=== PATIENT | female | born 1955 | race Caucasian/White ===

== ENCOUNTER 2020-04-02 12:20 | Outpatient (CLI) | payer MEDICARE, BC, SELFPAY ==
--- NOTE | 2020-04-02 12:34 | XR_ITS ---
WS: [id number] Right hip, AP and frog-leg views, 04/02/2020 Clinical Data: HIP PAIN RIGHT Comparison: None. Findings: There is narrowing of the right hip joint. No erosion or sclerosis is seen. There are no fractures or dislocations. The adjacent right pelvis shows that the right SI joint and pubic symphysis are normal . The soft tissues are unremarkable. XR/XR hip RT 2-3V wo/w pel* [id number] Impression: Moderate osteoarthritis of the right hip.
== END 2020-04-02 12:21 | disposition home or self-care (01) ==
PROVIDERS: Family Provider Family Medicine; Visit Provider Family Medicine
DX: M16.11 Unilateral primary osteoarthritis, right hip (principal)
CPT/HCPCS: 73502

== ENCOUNTER 2021-02-03 12:10 | Outpatient (CLI) | payer MEDICARE, BC, SELFPAY ==
--- NOTE | 2021-02-03 12:18 | XR_ITS ---
WS: [id number] Exam: XR chest 2V* [id number] Date/Time of Exam: 02/03/2021 12:18 PM Reason For Exam: EDEMA/DYSPNEA Comparison 07/11/2010. The lungs are clear and fully expanded. Normal cardiomediastinal silhouette. No pleural effusions. Pr ominent hiatal hernia. Bony structures are intact. XR/XR chest 2V* [id number] IMPRESSION: 1. Prominent hiatal hernia. The chest is otherwise normal.
== END 2021-02-03 12:11 | disposition home or self-care (01) ==
PROVIDERS: PCP Family Medicine; Visit Provider Family Medicine
DX: R60.9 Edema, unspecified (principal); R06.00 Dyspnea, unspecified; K44.9 Diaphragmatic hernia without obstruction or gangrene
CPT/HCPCS: 71046

== ENCOUNTER 2021-06-29 07:56 | Outpatient (CLI) | payer MEDICARE, BC, SELFPAY ==
--- NOTE | 2021-06-29 08:30 | USCV_ITS ---
Jackeline Johnston Age: 66 Gender: F : 1955 Exam Date: 06/29/2021 08:21 Ordering Phys: Nicolette Garcia MD ([email or web address]) Technologist: Exam Location: [facility] [place] Indication: BP: 130 / 75 HR: 62 Rhythm: Sinus Technical Quality: Adequate MEASUREMENTS (Male / Female) Normal Values 2D ECHO LV Diastolic Diameter PLAX 4.6 cm 4.2 - 5.9 / 3.9 - 5.3 cm LV Systolic Diameter PLAX 2.5 cm IVS Diastolic Thickness 1.0 cm 0.6 - 1.0 / 0.6 - 0.9 cm IVS Systolic Thickness 1.4 cm LVPW Diastolic Thickness 1.2 cm 0.6 - 1.0 / 0.6 - 0.9 cm LVPW Systolic Thickness 1.5 cm LVOT Diameter 2.2 cm LV Ejection Fraction 2D Teich 76.0 % LV Ejection Fraction MOD 2C 69.0 % LV Ejection Fraction 2C AL 68.0 % LA Diameter 3.6 cm M-MODE Aortic Annulus Diameter 2.9 cm LA Ao Ratio MM 1.4 MV E Point Septal Separation 0.5 cm DOPPLER AV Peak Velocity 124.7 cm/s LVOT Peak Velocity 96.0 cm/s AV Area Cont Eq vti 2.2 cm squared AV Area Cont Eq pk 2.8 cm squared MV Area PHT 5.0 cm squared Mitral E to A Ratio 0.9 MV E' Velocity 37.5 cm/s Mitral E to MV E' Ratio 8.3 Mitral E to LV E' Lateral Ratio 8.8 Mitral E to LV E' Septal Ratio 8.0 TR Peak Velocity 234.7 cm/s TR Peak Gradient 22.0 mmHg Right Atrial Pressure 3.0 mmHg Pulmonary Artery Systolic Pressu 25.0 mmHg PV Peak Velocity 87.0 cm/s FINDINGS Left Ventricle Normal left ventricular size. LV systolic function is normal with EF of 55-60%. No regional wall motion abnormalities. Grade 1 diastolic dysfunction Right Ventricle The right ventricle is normal in size and function. Right Atrium The right atrium is normal in size. Left Atrium The left atrium is dilated Mitral Valve Structurally normal mitral valve without significant stenosis or prolapse. There is mild mitral regurgitation. Aortic Valve Grossly normal without significant sclerosis or stenosis. There is no aortic regurgitation. Tricuspid Valve Grossly normal without significant stenosis. Mild tricuspid regurgitation. Pulmonary artery systolic pressure is normal. Pulmonic Valve Not well visualized Pericardium Normal pericardium without effusion. Aorta Normal ascending aorta dimension. CONCLUSIONS Technically limited quality echocardiogram because of poor ultrasonic windows LV systolic function is normal with EF of 55-60% Grade 1 diastolic dysfunction Left atrium is dilated Mild mitral regurgitation Mild tricuspid regurgitation No comparison studies are available Camilo Landa MD (Electronically Signed) Final Date: 29 June 2021 11:38 S
== END 2021-06-29 07:57 | disposition home or self-care (01) ==
LOC: RAD 07:58
PROVIDERS: PCP Family Medicine; Visit Provider Internal Medicine Cardiovascular Disease
DX: I10 Essential (primary) hypertension (principal); R06.02 Shortness of breath; I08.1 Rheumatic disorders of both mitral and tricuspid valves
CPT/HCPCS: 93306

== ENCOUNTER → 2022-10-27 08:27 | Outpatient (BNVA) | payer MEDICARE, BC, SELFPAY | PROVIDERS: PCP Electrodiagnostic Medicine; Visit Provider Dermatology | DX: L90.0 Lichen sclerosus et atrophicus (principal); L30.4 Erythema intertrigo; D23.5 Other benign neoplasm of skin of trunk; L81.4 Other melanin hyperpigmentation; D18.01 Hemangioma of skin and subcutaneous tissue; L57.3 Poikiloderma of Civatte; L82.1 Other seborrheic keratosis; I78.8 Other diseases of capillaries; L57.0 Actinic keratosis | CPT/HCPCS: 17000; 99214 ==

== ENCOUNTER → 2023-05-01 14:58 | Outpatient (BNVA) | payer MEDICARE, BC, SELFPAY | PROVIDERS: PCP Electrodiagnostic Medicine; Visit Provider Dermatology | DX: L90.0 Lichen sclerosus et atrophicus (principal); L57.0 Actinic keratosis; L81.4 Other melanin hyperpigmentation; I78.8 Other diseases of capillaries; L82.0 Inflamed seborrheic keratosis | CPT/HCPCS: 17000; 17110; 99213 ==

== ENCOUNTER 2023-07-04 12:36 | Outpatient (CLI) | payer MEDICARE, BC, SELFPAY ==
--- NOTE | 2023-07-04 12:44 | XR_ITS ---
WS: [id number] SCREENING DEXA SCAN [employer] CLINICAL INFORMATION: POSTMENOPAUSAL COMPARISON: None. FINDINGS: The L1-L4 bone mineral density measures 1.109 g/cm2. This corresponds to a T score score of -0.6 and Z score of 0.2. Left femoral neck bone mineral density measures 0.990 (g/cm2). This corresponds to a T score of -0.1 (no units) and Z score of 0.6 (no units). LEFT forearm bone mineral density measures 0.787. This corresponds to a T score -1.0 of and Z score o f 0.6. IMPRESSION: Osteopenia LEFT forearm. Normal bone mineralization lumbar spine and LEFT femoral neck Patient's FRAX calculated 10 year probability for major osteoporotic fracture is 10.7% and osteoporot ic hip fracture is 1.8%.
--- NOTE | 2023-07-04 13:11 | MM_ITS ---
WS: [id number] VIEWS: MLO and CC views both breasts. 3D digital tomosynthesis is also included in this exam. Comparison made with prior exam of 03/29/2010, 07/14/2011, 12/04/2012, 03/02/2015, 02/05/2017.. Findings: There was no sign of mass, architectural distortion or suspicious calcification in either breast. Sta ble appearing bilateral nodules. There are scattered areas of fibroglandular density. Impression: MM/[place] [id number] BI-RADS: 2-Benign finding. FOLLOW-UP: 1 Year Follow-up This mammogram was also analyzed by the Computer Aided Detection System R2 Imag e Flaring Machine Operator.
== END 2023-07-04 12:37 | disposition home or self-care (01) ==
LOC: RAD 12:38
PROVIDERS: PCP Electrodiagnostic Medicine; Visit Provider Electrodiagnostic Medicine
DX: Z12.31 Encounter for screening mammogram for malignant neoplasm of breast (principal); Z78.0 Asymptomatic menopausal state; R92.323 Mammographic fibroglandular density, bilateral breasts; M85.832 Other specified disorders of bone density and structure, left forearm
CPT/HCPCS: 77063; 77067; 77080

== ENCOUNTER → 2024-01-30 12:56 | Outpatient (BNVA) | payer MEDICARE, BC, SELFPAY | PROVIDERS: PCP Electrodiagnostic Medicine; Visit Provider Nurse Practitioner Family | DX: L90.0 Lichen sclerosus et atrophicus (principal); L30.4 Erythema intertrigo; I78.8 Other diseases of capillaries; L57.3 Poikiloderma of Civatte | CPT/HCPCS: 99213 ==

== ENCOUNTER 2024-11-19 12:29 | Outpatient (CLI) | payer MEDICARE, BC, SELFPAY ==
--- NOTE | 2024-11-19 12:34 | MM_ITS ---
WS: [id number] BILATERAL 3D TOMOSYNTHESIS DIGITAL SCREENING MAMMOGRAPHY WITH CAD CLINICAL INFORMATION: SCREENING HISTORY: Screening mammogram. No current complaints. COMPARISON: 2023 TECHNIQUE: Bilateral CC and MLO views. FINDINGS: Scattered fibroglandular densities bilaterally. No suspicious focal mass, asymmetry, calcifications, or architectural distortion. No evidence of malignancy. A few incidental punctate calcifications. Vascular calcifications. MM/MM scr tomosynthesis [id number] IMPRESSION: DENSITY: There are scattered areas of fibroglandular density. BI-RADS: 2 - Benign. FOLLOW UP: 1 Year Follow-up Recommend return to annual screening mammography.
== END 2024-11-19 12:30 | disposition home or self-care (01) ==
LOC: RAD 12:30
PROVIDERS: PCP Electrodiagnostic Medicine; Visit Provider Electrodiagnostic Medicine
DX: Z12.31 Encounter for screening mammogram for malignant neoplasm of breast (principal); R92.323 Mammographic fibroglandular density, bilateral breasts; R92.1 Mammographic calcification found on diagnostic imaging of breast
CPT/HCPCS: 77063; 77067

== ENCOUNTER → 2025-01-29 13:19 | Outpatient (BNVA) | payer MEDICARE, BC, SELFPAY | PROVIDERS: PCP Electrodiagnostic Medicine; Visit Provider Nurse Practitioner Family | DX: L90.0 Lichen sclerosus et atrophicus (principal); I78.8 Other diseases of capillaries; L57.3 Poikiloderma of Civatte; L81.4 Other melanin hyperpigmentation; L57.8 Other skin changes due to chronic exposure to nonionizing radiation; L82.1 Other seborrheic keratosis; D22.5 Melanocytic nevi of trunk | CPT/HCPCS: 99213 ==